=== PATIENT | male | born 1990 | race Caucasian/White ===

== ENCOUNTER → 2021-07-09 | Outpatient (CLI) | payer BC ==
--- NOTE | 2021-07-09 14:11 | REP ---
INDICATION: PRIOR PLEURAL EFFUSION COMPARISON: None. TECHNIQUE: PA and lateral. FINDINGS: The mediastinum and cardiac silhouette are normal. The lung alexander are clear and without acute consolidation, effusion, or pneumothorax. The skeletal structures are intact and normal. IMPRESSION: No acute cardiopulmonary process. <Electronically signed by Boris Infante > 07/09/21 [id number]
== END ==
LOC: M RAD 13:28
PROVIDERS: ATTEND Internal Medicine
DX: Z87.09 Personal history of other diseases of the respiratory system (principal)

== ENCOUNTER → 2021-07-31 | Outpatient (CLI) | payer BC ==
--- NOTE | 2021-07-31 10:18 | REP ---
INDICATION: RUQ PAIN. FINDINGS: Multiple ultrasonographic images of the liver show the hepatic parenchymal echo texture to be rather markedly diffusely increased with difficult sonographic beam penetration.. There are no focal masses. There is no intrahepatic ductal dilatation. The common bile duct was not visualized. Multiple ultrasonographic images of the gallbladder show no focal or diffuse gallbladder wall thickening. There are no echogenic foci within the gallbladder lumen, which casts acoustic shadows. There is no pericholecystic edema. Images of the pancreatic region show no gross abnormality. The imaged portion of the right kidney is unremarkable. IMPRESSION: There is diffuse fatty infiltration of the liver. Secondary to that the common bile duct could not be visualized. If clinically relevant consider CT. Accredited by the [employer] in General Ultrasound. <Electronically signed by Leonidas Carrsaco > 07/31/21 [id number]
== END ==
LOC: M RAD 08:25 → EDUNIT# 09:00
PROVIDERS: ATTEND Internal Medicine
DX: R10.13 Epigastric pain (principal); K76.0 Fatty (change of) liver, not elsewhere classified

== ENCOUNTER → 2022-01-01 | Outpatient (CLI) | payer BC ==
[~2022-01-01] MED LIST: E-Z-GAS II EFFERVESCENT PACKET (SODIUM BICARB./CITRIC ACID/SIMETHICONE) As Ordered ONE; E-Z-HD 98% w/w 340GM SUSP BTL As Ordered ONE; E-Z-PAQUE 96% w/w SUSP 176GM BTL As Ordered ONE
== END ==
LOC: M RAD 09:34
PROVIDERS: ATTEND Internal Medicine
DX: R13.10 Dysphagia, unspecified (principal); K22.89 Other specified disease of esophagus

== ENCOUNTER 2022-02-19 12:54 | Emergency (ER) | payer BC ==
[~2022-02-19] VITALS: Ht 188 cm; Wt 111.8 kg
[2022-02-19] MEDS ORDERED: OMEP-173 PO (13:04)
[2022-02-19] MEDS ORDERED: PHEN15CA6 PO (13:04)
[2022-02-19 15:59] LABS: BASO % 0.5 % (0.0-1.0); EOS # 0.2 10^3/uL (0.0-0.5); EOS % 3.2 % (0.0-3.0); HEMATOCRIT 44.5 % (42.0-52.0); HEMOGLOBIN 15.3 g/dl (13.5-17.5); LYMPH # 1.9 10^3/uL (1.5-5.0); LYMPH % 25.2 % (24.0-44.0); MEAN CORPUSCULAR HEMOGLOBIN 28.6 pg (27.0-33.0); MEAN CORPUSCULAR HGB CONC 34.4 g/dl (32.0-36.5); MEAN CORPUSCULAR VOLUME 83.2 fl (80.0-96.0); MONO # 0.5 10^3/uL (0.0-0.8); MONO % 5.9 % (2.0-8.0); NEUTROPHILS % 65.1 % (36.0-66.0); PLATELET COUNT, AUTOMATED 267 10^3/uL (150-450); RED BLOOD COUNT 5.35 10^6/uL (4.30-6.10); WHITE BLOOD COUNT 7.6 10^3/uL (4.0-10.0)
[2022-02-19 16:10] LABS: INR 1.08; PROTHROMBIN TIME 14.4 SECONDS (12.7-14.5)
[2022-02-19 16:11] LABS: PARTIAL THROMBOPLASTIN TIME 32.3 SECONDS (25.9-37.0)
[2022-02-19 16:29] LABS: CK-MB VALUE MASS 1.2 NG/ML (<3.6); MB/CK RELATIVE INDEX 0.88 (< OR =4)
[2022-02-19 16:35] LABS: ALBUMIN 4.5 GM/DL (3.2-5.2); ALT/SGPT 39 U/L (12-78); BILIRUBIN,DIRECT 0.2 MG/DL (0.0-0.2); BILIRUBIN,TOTAL 0.7 MG/DL (0.2-1.0); BLOOD UREA NITROGEN 13 MG/DL (7-18); CALCIUM LEVEL 9.5 MG/DL (8.5-10.1); CARBON DIOXIDE LEVEL 29 MEQ/L (21-32); CHLORIDE LEVEL 108 MEQ/L (98-107); CREATININE FOR GFR 0.93 MG/DL (0.70-1.30); FREE T4 1.09 NG/DL (0.76-1.46); GLOMERULAR FILTRATION RATE > 60.0 (>60); GLUCOSE, FASTING 91 MG/DL (70-100); LIPASE 115 U/L (73-393); MAGNESIUM LEVEL 2.1 MG/DL (1.8-2.4); NT-PRO BNP 42 PG/ML (<125); POTASSIUM SERUM 3.9 MEQ/L (3.5-5.1); SODIUM LEVEL 140 MEQ/L (136-145); THYROID STIMULATING HORMONE 0.613 uIU/ML (0.358-3.740); TOTAL PROTEIN 7.9 GM/DL (6.4-8.2)
[2022-02-19 17:28] LABS: D-DIMER QUANT < 270 ng/ml (<500)
[2022-02-19 18:36] VITALS: BP 139/84
== END 2022-02-19 18:35 | disposition home or self-care (01) ==
LOC: M ED 12:54
DX: R00.1 Bradycardia, unspecified (principal)

== ENCOUNTER → 2022-03-07 | Outpatient (CLI) | payer BC ==
[~2022-03-07] MED LIST changes: -E-Z-GAS II EFFERVESCENT PACKET (SODIUM BICARB./CITRIC ACID/SIMETHICONE) As Ordered ONE; -E-Z-HD 98% w/w 340GM SUSP BTL As Ordered ONE; -E-Z-PAQUE 96% w/w SUSP 176GM BTL As Ordered ONE; +OMEP-173 PO; +PHEN15CA6 PO
== END ==
LOC: M EKG 14:14
PROVIDERS: ATTEND Internal Medicine
DX: R00.1 Bradycardia, unspecified (principal); R53.83 Other fatigue; R42 Dizziness and giddiness; R07.9 Chest pain, unspecified

== ENCOUNTER → 2022-04-29 | Outpatient (CLI) | payer BC ==
[~2022-04-29] MED LIST changes: +ZYRT10TA12 PO
== END ==
LOC: M LABSMTC 11:46
PROVIDERS: ATTEND Anesthesiology
DX: Z01.812 Encounter for preprocedural laboratory examination (principal); Z20.822 Contact with and (suspected) exposure to COVID-19

== ENCOUNTER → 2022-05-02 | Outpatient (CLI) | payer BC | LOC: M SLEEP HO 12:39 | PROVIDERS: ATTEND Internal Medicine Cardiovascular Disease | DX: R06.83 Snoring (principal) ==

== ENCOUNTER 2022-05-04 12:54 | Day surgery (SDC) | payer BC ==
[~2022-05-04] VITALS: Ht 188 cm; Wt 105.2 kg
[~2022-05-04 12:54] MED LIST changes: +NS 1,000 ML IV ONE
[2022-05-04] MEDS ORDERED: LIDOCAINE 2% 100MG/5ML SDV (FOR ANES.) As Ordered ONE (13:19)
[2022-05-04] MEDS ORDERED: propofoL 200 MG/20 ML VIAL As Ordered ONE (13:19)
[2022-05-04] MEDS ORDERED: fentaNYL 100 MCG/2 ML INJECTION As Ordered ONE (13:20)
[2022-05-04 15:30] VITALS: BP 129/76
== END 2022-05-04 15:48 | disposition home or self-care (01) ==
LOC: M OPP 12:54
PROVIDERS: ATTEND Internal Medicine Gastroenterology
DX: R13.10 Dysphagia, unspecified (principal); K29.70 Gastritis, unspecified, without bleeding; K31.89 Other diseases of stomach and duodenum; K21.9 Gastro-esophageal reflux disease without esophagitis; F41.9 Anxiety disorder, unspecified; Z79.899 Other long term (current) drug therapy
CPT/HCPCS: 43239; 88305; J3010

== ENCOUNTER 2023-04-28 08:34 | Emergency (ER) | payer BC ==
[~2023-04-28] VITALS: Ht 190.5 cm; Wt 103.0 kg
[~2023-04-28 08:34] MED LIST changes: -NS 1,000 ML IV ONE
[2023-04-28 08:36] VITALS: BP 130/68; TEMP 97.6; O2SAT 100
[2023-04-28] MEDS ORDERED: BUPR150T12 PO (11:06)
[2023-04-28] MEDS ORDERED: NAPR-837 PO (11:15)
== END 2023-04-28 11:20 | disposition home or self-care (01) ==
LOC: M ED 08:34
DX: S86.212A Strain of muscle(s) and tendon(s) of anterior muscle group at lower leg level, left leg, initial encounter (principal); K21.9 Gastro-esophageal reflux disease without esophagitis; F17.200 Nicotine dependence, unspecified, uncomplicated; Z79.899 Other long term (current) drug therapy

== ENCOUNTER → 2023-07-03 | Outpatient (REF) | payer BC ==
[~2023-07-03] MED LIST changes: +BUPR150T12 PO; +NAPR-837 PO
== END ==
LOC: M LAB REF 13:17
PROVIDERS: ATTEND Internal Medicine
DX: J06.9 Acute upper respiratory infection, unspecified (principal); R53.81 Other malaise; R50.9 Fever, unspecified

== ENCOUNTER → 2024-01-10 | Outpatient (CLI) | payer BC | LOC: M RAD 07:27 | PROVIDERS: ATTEND Nurse Practitioner Family | DX: J34.89 Other specified disorders of nose and nasal sinuses (principal) ==

== ENCOUNTER 2024-03-03 09:50 | Day surgery (SDC) | payer BC ==
[~2024-03-03] VITALS: Ht 188 cm; Wt 114.4 kg
[~2024-03-03 09:50] MED LIST changes: +BUPR-597 PO; +SERT50TA29 PO
[2024-03-03] MEDS ORDERED: LR 1,000 ML IV SCH ×2 (10:10→15:45)
[2024-03-03] MEDS ORDERED: MIDAZOLAM INJ 2MG/2ML VIAL As Ordered ONE (11:04)
[2024-03-03] MEDS ORDERED: fentaNYL 100 MCG/2 ML INJECTION As Ordered ONE (11:05)
[2024-03-03] MEDS ORDERED: propofoL 200 MG/20 ML VIAL As Ordered ONE (11:15)
[2024-03-03] MEDS ORDERED: ONDANSETRON 4MG 2ML VIAL As Ordered ONE (11:16)
[2024-03-03] MEDS ORDERED: METOCLOPRAMIDE INJ 10MG/2ML VIAL As Ordered ONE (11:16)
[2024-03-03] MEDS ORDERED: LIDOCAINE 2% 100MG/5ML SDV (FOR ANES.) As Ordered ONE (11:17)
[2024-03-03] MEDS ORDERED: ACETAMINOPHEN 1000MG 100ML IV BAG As Ordered ONE (11:58)
[2024-03-03] MEDS ORDERED: ROCURONIUM BROMIDE 50MG/5ML VIAL As Ordered ONE (12:32)
[2024-03-03] MEDS ORDERED: SUGAMMADEX SODIUM 500 MG/5 ML VIAL (BRIDION) As Ordered ONE (12:36)
[2024-03-03] MEDS ORDERED: GLYCOPYRROLATE INJ 0.2 MG/ML 2 ML VIAL As Ordered ONE (12:37)
[2024-03-03] MEDS: COCAINE 4% 4ML NASAL SOLUTION BTL As Ordered ONE (12:42)
[2024-03-03] MEDS: METHYLENE BLUE 0.5% (5MG/ML) 10 ML AMP (PROVAYBLUE) As Ordered ONE (12:43)
[2024-03-03] MEDS: BACITRACIN OINTMENT 30GM TUBE As Ordered ONE (12:43)
[2024-03-03] MEDS: EPINEPHrine 1MG/ML INJ 30ML MD-VIAL As Ordered ONE (12:44)
[2024-03-03] MEDS: LIDOCAINE W/EPINEPHRINE 1% 20ML VIAL As Ordered ONE (13:00)
[2024-03-03] MEDS ORDERED: HYDROmorphone HCL 2MG/ML 1ML VIAL As Ordered ONE (13:02)
[2024-03-03] MEDS ORDERED: ONDANSETRON 4MG 2ML VIAL IV PRN (13:15)
[2024-03-03] MEDS ORDERED: fentaNYL 100 MCG/2 ML INJECTION IV PRN (13:15)
[2024-03-03] MEDS ORDERED: MORPHINE 2 MG/ML 1ML VIAL IV PRN (13:15)
[2024-03-03] MEDS ORDERED: oxyCODONE 5MG TAB PO PRN (13:15)
[2024-03-03 13:58] VITALS: BP 130/80; TEMP 97.3; O2SAT 96
[2024-03-03] MEDS ORDERED: ANEXSIA, NORCO 7.5MG/325MG TABLET(HYDROCODONE/APAP) PO PRN (15:50)
== END 2024-03-03 14:23 | disposition home or self-care (01) ==
LOC: M SDC 09:50
PROVIDERS: ATTEND Otolaryngology
DX: D18.09 Hemangioma of other sites (principal); R00.1 Bradycardia, unspecified; K90.0 Celiac disease; Z79.899 Other long term (current) drug therapy; Z90.49 Acquired absence of other specified parts of digestive tract
CPT/HCPCS: 30117; 88305; C9143; J0131; J0171; J1100; J1170; J2250; J2405; J3010; Q9968